=== PATIENT | male | born 1935 | race Two or more races ===

== ENCOUNTER 2017-06-16 10:14 | Outpatient (CLI) | payer MEDICARE | END 2017-06-16 23:59 | disposition home or self-care (01) | LOC: WOU 10:14 | PROVIDERS: ATTEND Specialist | DX: N30.41 Irradiation cystitis with hematuria (principal); Z87.891 Personal history of nicotine dependence; M06.9 Rheumatoid arthritis, unspecified; I10 Essential (primary) hypertension; Z79.899 Other long term (current) drug therapy; C61 Malignant neoplasm of prostate; L59.8 Other specified disorders of the skin and subcutaneous tissue related to radiation | CPT/HCPCS: G0463 ==